=== PATIENT | male | born 1975 | race Hispanic/Latino ===

== ENCOUNTER 2016-12-06 09:37 | Emergency (ER) | payer OTHER ==
[~2016-12-06] VITALS: Ht 180.3 cm; Wt 109.0 kg
[~2016-12-06 09:37] MED LIST: IBUP800T28 PO
[2016-12-06 09:51] VITALS: BP 160/96; PULSE 72; RESP 13; O2SAT 96
--- NOTE | 2016-12-06 09:51 | ED.REPORT ---
HPI-General Illness Date of Service December 06, 2016 ED Provider: The patient is a 41 year old male with history of alcohol abuse, bipolar, depression, who presents to the emergency department complaining of shortness of breath that has worsened over the last few hours. The patient states he has experienced shortness of breath intermittently for quite some time. He has been drinking 1/5 bottle of hard alcohol for the last 6 years. His breathing is usually worse with drinking alcohol. He also notices left shoulder numbness and reports having occasional "visions" when he is drinking. At this time he feels nauseous. He denies chest pain or vomiting. The patient does admit to feeling suicidal over the last couple of months. He has a plan of hanging himself. He denies homicidal ideation. He normally take Citalopram 20 mg daily but has not taken this for the last few days. Nursing Notes Stated Complaint: HARD TO BREATHE Chief Complaint: Respiratory Distress Nursing Notes Reviewed: Yes Allergies: Coded Allergies: No Known Allergies (Unverified , 09/29/15) Scheduled PRN Ibuprofen (Ibuprofen) 800 Mg Tablet 800 MG PO TID PRN PRN For Pain General Time Seen by MD: 09:50 Chief Complaint Other (shortness of breath) Hx Obtained From: Patient, Other family... Arrived By: Walk-in Sudden in Onset?: No Onset Occurred: More than a week ago... Symptom Duration: Intermittent Severity: Current: No pain currently Severity: Maximum: No pain Recent Healthcare: No recent doctor visit, No recent hospitalization Similar Sx Previous: Yes Past Medical History Past Medical History Alcoholism Hernia Hypertension Bipolar Depression Past Surgical History None Family History Noncontributory Smoking History Never Smoker Social History Alcohol Use: >5 per day Drug Use: Denies drug use Other Social History: Good social support, , Local resident Ambulatory Status Independent Review of Systems Full Review of Systems Respiratory: Reports: Shortness of breath Cardiovascular: Denies: Chest pain GI: Reports: Nausea, Denies: Vomiting Psychiatric: Reports: Change mental status, Hallucinations, visual, Suicidal ideation, Denies: Homicidal ideation Complete sys rev & neg: except as marked. Physical Exam Vital Signs Vital Signs Date Time Temp Pulse Resp B/P Pulse Ox O2 Delivery O2 Flow Rate FiO2 12/06/16 15:02 37 87 17 138/68 98 Room Air 12/06/16 09:51 35.9 72 13 160/96 96 Room Air Initial VS: Reviewed Head / Eyes: Atraumatic, Normocephalic, PERRL ENT: Mucous membranes moist, Conjunctiva normal, No scleral icterus Respiratory: Breath sounds normal, Clear to auscultation, No respiratory distress Abdomen / GI: Soft, Non-tender, No guarding, No rebound, No distention Extremities: Vascular intact, Neuro intact, No swelling, No tenderness Skin: Warm, Dry, No cyanosis Neurologic: Nonfocal General/Constitutional: Awake Appears intoxicated Neck: Atraumatic, Supple, No JVD Cardiovascular: Heart rate NL, Regular rhythm, Heart sounds NL, No murmurs, No rubs, Cap refill not delayed, Peripheral circulation NL, Pulses = bilaterally Abdomen: Atraumatic, Soft, Non-tender, No guarding, No rebound, BS normoactive , No distention, No hernia, No palpable mass, No pulsatile mass Lower Extremity / Pelvis / MS: Neurologic intact, Vascular intact, No edema Abnormal Mood/Affect: Positive: Flat affect Abnormal Thinking / Perception: Positive: Hallucinations, visual (per patient, "visions"), Suicidal, with plan Poor eye contact Interpretation & Diagnostics Interpretation & Diagnostics: Breathalyzer: 0.282 at 0959, 0.196 at 1502, 0.129 at 1729 Lab Results Interpretation Result Diagram: 12/06/16 1009 12/06/16 1009 Test 12/06/16 10:09 12/06/16 10:58 White Blood Count 6.6th/mm3 (3.8-10.1) Red Blood Count 5.59mil/mm3 (4.40-5.80) Hemoglobin 16.6g/dL (13.8-17.2) Hematocrit 47.5% (41.0-50.0) Mean Corpuscular Volume 85.0fL (81-100) Mean Corpuscular Hemoglobin 29.7pg (27.0-35.0) Mean Corpuscular Hemoglobin Concent 34.9% (32.0-37.0) Red Cell Distribution Width 13.8% (12.3-15.4) Platelet Count 227bil/L (150-400) Neutrophils (%) (Auto) 57.5% (40-74) Lymphocytes (%) (Auto) 32.8% (14-46) Monocytes (%) (Auto) 6.6% (4-12) Eosinophils (%) (Auto) 0.8% (0-5) Basophils (%) (Auto) 2.0% (0-3) Sodium Level 147mEq/L (134-144) Potassium Level 3.6mEq/L (3.5-5.2) Chloride Level 101mEq/L (97-108) Carbon Dioxide Level 26mmol/L (18-29) Blood Urea Nitrogen 7mg/dL (6-24) Creatinine 0.91mg/dL (0.76-1.27) Estimat Glomerular Filtration Rate 97mL/min (>59) Glucose Level 126mg/dL (60-99) Calcium Level 9.4mg/dL (8.5-10.1) Total Bilirubin 0.7mg/dL (0.0-1.2) Aspartate Amino Transf (AST/SGOT) 34U/L (0-50) Alanine Aminotransferase (ALT/SGPT) 55U/L (0-44) Alkaline Phosphatase 58U/L (25-150) Troponin T 0.010ug/L (0.0-0.011) Pro-B-Type Natriuretic Peptide 5.00pg/mL (0-86) Total Protein 8.4g/dL (6.4-8.4) Albumin 4.8g/dL (3.4-5.0) Thyroid Stimulating Hormone (TSH) 1.340uIU/mL (0.450-4.500) Hold Abraham Top Tube Received (Received) Hold Urine Received (Received) ECG Interpretation ECG Interpretation: Normal sinus rhythm with a rate of 68 No acute changes Time: 10:46 Interpreted by: ED physician X-Ray Chest Interpretation Chest Xray Interpretation: IMPRESSION: No acute cardiopulmonary disease. Dictated by: Ramirez Cummins RRJohn Paul Interpreted: Johnson Jean MD on 12/06/2016 at 13:24 Interpretation / Wet Read by: Interpret - Radiologist Re-Eval/Medical Decision Med Decision/Clinical Course No significant evidence pathology for shortness of breath however the patient is suicidal. Currently awaiting more meaningful sobriety for reevaluation. Care transferred to Dr. Pinto Source of Hx: Old records, Family Time of Eval: 12:08 Re-Evaluation/Progress Note: Rechecked the patient. He is resting comfortably. Counseled Regarding: Diagnosis, Lab results Discharge & Departure Primary Impression: Alcohol abuse Additional Impression: Suicidal ideation Discharge Condition All VS Reviewed: Yes Condition: Stable Referrals: Jennifer Lang MD (PCP) Care Transferred to: Dr. Pinto Care Transferred at: 18:01 Scribe Attestation Portions of this note were transcribed by Laverne Loja. I, Dr. Messer personally performed the history, physical exam and medical decision-making; I reviewed and confirmed the accuracy of the information in the transcribed note. Signed by: Saurav Guerrero, 12/06/2016 at 1800. copies to: Jennifer Lang MD, Timothy S DO December 06, 2016 09:51 Laverne Loja December 06, 2016 09:58
[2016-12-06] MEDS ORDERED: LidocaineVisc 2%:Antacid 1:1 10 mL Syringe PO ONE (10:20)
[2016-12-06 10:22] LABS: EOSINOPHILS % (AUTO) 0.8 % (0-5); MONOCYTES % (AUTO) 6.6 % (4-12); Mean Corpuscular Hemoglobin 29.7 pg (27.0-35.0); NEUTROPHILS % (AUTO) 57.5 % (40-74); Platelet Count 227 bil/L (150-400)
[2016-12-06] MEDS ORDERED: LORazepam 2 mg Tablet PO ONE ×3 (10:25→17:25)
[2016-12-06] MEDS ORDERED: Ondansetron 8 mg ODT Tablet ONE (11:40)
[2016-12-06 11:55] LABS: TROPONIN T 0.01 ug/L (0.0-0.011)
--- NOTE | 2016-12-06 13:27 | DRSVH ---
PROCEDURE: X-RAY CHEST ONE VIEW, PORTABLE ([id number]) INDICATIONS: dyspnea TECHNIQUE: One view of the chest was acquired. COMPARISON: [facility], CR, XR CHEST 1VW (PORTABLE), 08/06/2015, 23:22. FINDINGS: Surgical changes and devices: None. Lungs and pleura: No pleural effusions or pneumothorax. Lungs are clear. Mediastinum: Mediastinal contours appear normal. Heart size is normal. Bones and chest wall: No suspicious bony lesions. Overlying soft tissues appear unremarkable. IMPRESSION: No acute cardiopulmonary disease. Dictated by: Ramirez Cummins John Paul Interpreted: Johnson Jean MD on 12/06/2016 at 13:24 Transcribed by: JUSTICE on 12/06/2016 at 13:27 Approved by: Johnson Jean M.D. on 12/06/2016 at 15:11
[2016-12-06 15:02] VITALS: BP 138/68; PULSE 87; RESP 17; O2SAT 98
[2016-12-06 20:17] VITALS: BP 137/61; PULSE 87; RESP 17; O2SAT 98
== END 2016-12-06 20:50 | disposition home or self-care (01) ==
LOC: SED 09:37
DX: F10.20 Alcohol dependence, uncomplicated (principal); R45.851 Suicidal ideations; F31.9 Bipolar disorder, unspecified; R20.2 Paresthesia of skin; I10 Essential (primary) hypertension; Y90.6 Blood alcohol level of 120-199 mg/100 ml

== ENCOUNTER 2017-01-10 17:47 | Emergency (ER) | payer OTHER | END 2017-01-10 17:50 | disposition left against medical advice (07) | LOC: SED 17:47 | DX: Z53.21 Procedure and treatment not carried out due to patient leaving prior to being seen by health care provider (principal) ==

== ENCOUNTER 2017-02-13 03:20 | Emergency (ER) | payer MEDICAID, OTHER ==
[~2017-02-13] VITALS: Ht 180.3 cm; Wt 106.8 kg
[2017-02-13 03:24] VITALS: BP 144/98; PULSE 86; RESP 18; O2SAT 95
--- NOTE | 2017-02-13 04:13 | ED.REPORT ---
HPI-Trauma Minor / Fall Date of Service Feb 13, 2017 ED Provider: oJhn Ball MD Patient is a 42-year-old male with history of alcoholism, bipolar disorder, depression presents to the emergency department after a fall earlier today. He was jumping over a 5 foot and today when he landed on his feet, and fell to his bottom. He did not lose consciousness and did not hit his head. At the time of the fall he noticed sharp 10/10 pain in his right heel. Since that time he has approximately 5/10 achy pain on the lateral aspect of his right heel. The pain radiates toward his toes. He has not been bearing weight on it. For the last month he has had bilateral heel pain that improves with walking. He has not taken any medication to improve his symptoms. Patient denies fever, chills , headache, abdominal pain, chest pain, shortness of breath. Nursing Notes Stated Complaint: FALL,NOT ABLE FEEL RT HEEL AND FINGERS RT HAND Chief Complaint: Extremity Trauma Nursing Notes Reviewed: Yes Allergies: Coded Allergies: No Known Allergies (Unverified , 09/29/15) Scheduled PRN Ibuprofen (Ibuprofen) 800 Mg Tablet 800 MG PO TID PRN PRN For Pain General Time Seen by MD: 03:50 Chief Complaint Fall Hx Obtained From: Patient Arrived By: Walk-in Onset Occurred: 9 - 12 hours ago Symptom Duration: Since onset Past Medical History Past Medical History Alcoholism Hernia Hypertension Bipolar Depression Past Surgical History None Family History No family history of osteoporosis Smoking History Never Smoker Social History Alcohol Use: >5 per day (fifth per week) Drug Use: Denies drug use Other Social History: Good social support, , Local resident Ambulatory Status Independent Review of Systems A comprehensive review of systems was conducted with the patient and found to be negative except as above in the History of Present Illness. Physical Exam Initial Vital Signs Vital Signs (First) Date Time Temp Pulse Resp B/P Pulse Ox O2 Delivery O2 Flow Rate FiO2 02/13/17 03:24 36.4 86 18 144/98 95 Room Air Initial VS: Reviewed, Vital signs normal Head / Eyes: Atraumatic, Normocephalic, PERRL ENT: Mucous membranes moist, Conjunctiva normal, No scleral icterus Respiratory: Breath sounds normal, Clear to auscultation, No respiratory distress Cardiovascular: Regular rate & rhythm, Heart sounds normal, Intact distal pulses Abdomen / GI: Soft, Non-tender, No guarding, No rebound, No distention Lymphatic: No lymphadenopathy Skin: Warm, Dry, No cyanosis Neurologic: Alert, Oriented, Nonfocal Psychiatric: Behavior normal, Normal thought content General/Constitutional: Awake, Alert Erythema and warmth over the right lateral heel. Tenderness to palpation in the same area. Strength in dorsi and plantar flexion of ankle normal. Re-Eval/Medical Decision Med Decision/Clinical Course Patient is a 42-year-old male who jumped over a 5 foot fence today and injured his right lateral heel. X-rays are negative for occult fracture. He has tenderness on exam. With some associated redness and mild swelling. Recommendations for patient include ice, elevation, ibuprofen for pain. Patient departed prior to results of x-ray being given. If he returns with difficulty ambulating I would recommend crutches and postop shoe if needed due to swelling. Discharge & Departure Impression: Primary Impression: Contusion of foot Encounter type: initial encounter Laterality: right Qualified Code: S90.31XA - Contusion of right foot, initial encounter Disposition: Home Discharge Condition All VS Reviewed: Yes Condition: Stable Patient Instructions: Crutch Instructions (ED) Additional Instructions: Thank you for entrusting us with your care today. You have no fracture of the year foot visible on x-ray. You may take ibuprofen, ice, and elevate your foot to help with pain control and prevent swelling. You may use crutches to help with ambulation while it is still painful to walk on. Please follow-up with your primary care provider within the next week, or earlier if symptoms do not begin to gradually improve. Referrals: Jennifer Lang MD (PCP) Attending Statement I supervised evaluation and management of the resident physician and agree with her documentation as above. Patient left after his x-rays without completion of his evaluation. copies to: Jennifer Lang MD, Erika R DO Feb 13, 2017 04:13 John Ball MD Feb 13, 2017 07:25
--- NOTE | 2017-02-13 09:05 | DRSVH ---
PROCEDURE: X-RAY RIGHT FOOT COMPLETE, MINIMUM THREE VIEWS ([id number]) INDICATIONS: Fall from 5 ft TECHNIQUE: 3 views of the foot were acquired. COMPARISON: None. FINDINGS: Bones: No fractures or dislocations. No suspicious bony lesions. Hypertrophic changes involving th e medial aspect of the first metatarsal head and medial bunion is present. Soft tissues: No tibiotalar joint effusion. Achilles tendon appears normal. IMPRESSION: No fracture seen. If there is continued pain, followup exam or additional imaging such as MRI or CT could be performed for further assessment. Dictated by: Ramirez Cummins [facility] Interpreted: Oswaldo Pitts MD on 02/13/2017 at 9:04 Transcribed by: MIGUEL on 02/13/2017 at 9:05 Approved by: Oswaldo Pitts M.D. on 02/13/2017 at 11:43
--- NOTE | 2017-02-13 10:51 | DRSVH ---
PROCEDURE: X-RAY RIGHT CALCANEUS, MINIMUM TWO VIEWS ([id number]) INDICATIONS: Fall from 8 ft TECHNIQUE: Two views of the calcaneus were acquired. COMPARISON: None. FINDINGS: Bones: No fractures or dislocations. No suspicious bony lesions. Soft tissues: No suspicious calcifications. Achilles tendon appears normal. IMPRESSION: No fracture seen. If there is continued pain, followup exam or additional imaging such as MRI or CT could be performed for further assessment. Dictated by: Ramirez Cummins [facility] Interpreted: Oswaldo Pitts MD on 02/13/2017 at 9:03 Approved by: Oswaldo Pitts M.D. on 02/13/2017 at 10:50
== END 2017-02-13 05:59 | disposition home or self-care (01) ==
LOC: SED 03:20
DX: S90.31XA Contusion of right foot, initial encounter (principal); W17.89XA Other fall from one level to another, initial encounter; Y93.9 Activity, unspecified; Y92.9 Unspecified place or not applicable; Y99.9 Unspecified external cause status; I10 Essential (primary) hypertension

== ENCOUNTER 2017-02-19 12:28 | Inpatient (IN) | payer MEDICAID, OTHER ==
[~2017-02-19] VITALS: Ht 157.5 cm; Wt 103.7 kg
[2017-02-19] VITALS (10 sets, daily range): BP systolic 151–189; BP diastolic 98–125; PULSE 91–116; RESP 16–20; O2SAT 92–97
--- NOTE | 2017-02-19 12:40 | ED.REPORT ---
HPI-Overdose/Alcohol Toxicity Date of Service Feb 19, 2017 ED Provider: Satish Daly MD Patient is a 42 year old male with a history of hypertension, bipolar disorder and alcoholism who presents to the ED due to alcohol withdrawal. Associated symptoms include shaking, diaphoresis, nausea, vomiting and subjective fever. He denies hematemesis or black/tarry stool. The patient reports that he went to have his first assessment for rehab and they told him he needed to be evaluated at the ED. Patient states that his last drink was last night. He has a history of black outs due to alcohol use. Nursing Notes Stated Complaint: ALCOHOL WITHDRAWAL Chief Complaint: Substance Abuse Nursing Notes Reviewed: Yes Allergies: Coded Allergies: No Known Allergies (Unverified , 02/19/17) Scheduled Citalopram (Citalopram) 20 Mg Tablet 20 MG PO DAILY General Time Seen by Provider: 12:52 Chief Complaint Other (alcohol withdraw) Hx Obtained From: Patient Arrived By: Walk-in Onset Occurred: 1 day ago Symptom Duration: Since onset Recent Healthcare: Recent doctor visit Similar Sx Previous: Yes Past Medical History Past Medical History Alcoholism Hernia Bipolar Depression Reports: Hypertension Past Surgical History None Family History No family history of osteoporosis Smoking History Never Smoker Social History Alcohol Use: >5 per day Drug Use: Denies drug use Other Social History: Good social support, , Local resident Ambulatory Status Independent Review of Systems Constitutional: Reports: Fever, Denies: Chills Respiratory: Denies: Non-productive cough, Shortness of breath GI: Reports: Nausea, Vomiting, Denies: Bloody/tarry stool, Hematemesis Skin: Reports Diaphoresis, Denies Itching, Denies Rash Neurologic: Reports: Shaking, Denies: Weakness Complete sys rev & neg: except as marked. Physical Exam Initial Vital Signs Vital Signs (First) Date Time Temp Pulse Resp B/P Pulse Ox O2 Delivery O2 Flow Rate FiO2 02/19/17 12:34 37.2 116 18 185/125 95 Room Air Initial VS: Reviewed General/Constitutional: Awake, Alert tremulous Respiratory / Chest: Atraumatic, Breath sounds NL, Breath sounds = bilat, No respiratory distress Cardiovascular: Heart rate NL, Regular rhythm, Heart sounds NL Abdomen: Atraumatic, Soft, Non-tender Neurologic: Oriented X3, Speech NL Psychiatric: Affect NL, Mood NL Head / Eyes: Atraumatic, Normocephalic, PERRL, EOMI Neck: Atraumatic, Supple Skin: Atraumatic, Color NL, No rash diaphoretic Interpretation & Diagnostics Lab Results Interpretation Result Diagram: 02/19/17 1406 Test 02/19/17 14:06 02/19/17 14:07 White Blood Count 4.6th/mm3 (3.8-10.1) Red Blood Count 5.23mil/mm3 (4.40-5.80) Hemoglobin 15.8g/dL (13.8-17.2) Hematocrit 45.1% (41.0-50.0) Mean Corpuscular Volume 86.2fL (81-100) Mean Corpuscular Hemoglobin 30.2pg (27.0-35.0) Mean Corpuscular Hemoglobin Concent 35.0% (32.0-37.0) Red Cell Distribution Width 15.3% (12.3-15.4) Platelet Count 163bil/L (150-400) Neutrophils (%) (Auto) 74.2% (40-74) Lymphocytes (%) (Auto) 14.0% (14-46) Monocytes (%) (Auto) 9.6% (4-12) Eosinophils (%) (Auto) 0% (0-5) Basophils (%) (Auto) 2.2% (0-3) Hold Abraham Top Tube Received (Received) ECG Interpretation ECG Interpretation: sinus tachycardia, rate 109 Time: 13:53 Interpreted by: ED physician Re-Eval/Medical Decision Re-Evaluation/Progress : Time of Eval: 13:38 Re-Evaluation/Progress Note: Discussed plan to admit. Patient understands and agrees to plan. All questions were addressed. Consultation : Referral / Consult Name: Martin Horvath MD Consulted With: Hospitalist Call Returned at: 13:57 Tape Maker: Agrees with eval, Agrees with plan, Accepts admit Counseled Regarding: Diagnosis, Lab results, Need for admission Discharge & Departure Impression: Primary Impression: Alcohol withdrawal Complication of substance-induced condition: uncomplicated Qualified Code: F10.230 - Alcohol dependence with withdrawal, uncomplicated )( Condition at Discharge: No danger to self, No danger to others Disposition: ADMITTED TO HOSPITAL Discharge Condition All VS Reviewed: Yes Condition: Stable Referrals: Jennifer Lang MD (PCP) Scribe Attestation Portions of this note were transcribed by Shanika Garduno. I, Dr. Daly personally performed the history, physical exam and medical decision-making; I reviewed and confirmed the accuracy of the information in the transcribed note. Signed by: Saurav Aguayo, 02/19/17 copies to: Jennifer Lang MD, Kirk H MD Feb 19, 2017 12:40 Shania Garduno Feb 19, 2017 12:54
[2017-02-19] MEDS ORDERED: LORazepam 2 mg Tablet PO ONE (12:55)
[2017-02-19] MEDS ORDERED: Multivitamin w/Vit K Inj 10 ML, Thiamine Inj 100 MG, Folic Acid Inj 1 MG, Magnesium Sul... IV ONE ×5 (13:42)
--- NOTE | 2017-02-19 13:49 | NUR ---
ED HEATING ELEMENT WINDER Note Carlos Ybarra Jr. is a 42 year old male who presents to the ED with ETOH withdrawal. BAL is 0. Pt was at [facility] for his assessment to get placed into inpt treatment. [facility] encouraged pt to come to the ED due to severity of withdrawal symptoms. HEATING ELEMENT WINDER order placed to see pt. Per MD, pt is being admitted. HEATING ELEMENT WINDER on the hospital floor to see pt if indicated when pt is appropriate. JACQUE Brink
[2017-02-19] MEDS ORDERED: 0.9% Sodium Chloride 1,000 ML IV ONE (13:55)
[2017-02-19] MEDS ORDERED: Alum-Mag Hydrox-Simeth 30 mL Suspension PO PRN (14:00)
[2017-02-19] MEDS ORDERED: Polyethylene Glycol (PEG) 17 Gm Powder PO PRN (14:00)
[2017-02-19] MEDS ORDERED: Thiamine Inj 100 MG, Folic Acid Inj 1 MG, Magnesium Sulfate 50% Inj 2 GM, Multivitamins... IV ONE ×5 (14:00)
[2017-02-19] MEDS ORDERED: Ondansetron 2 mg/mL 2 mL Inj IVPUSH PRN (14:00)
[2017-02-19 14:09] LABS: BASOPHILS % (AUTO) 2.2 % (0-3); EOSINOPHILS % (AUTO) 0 % (0-5); MONOCYTES % (AUTO) 9.6 % (4-12); Mean Corpuscular Hemoglobin 30.2 pg (27.0-35.0); Mean Corpuscular Volume 86.2 fL (81-100); NEUTROPHILS % (AUTO) 74.2 % (40-74); Platelet Count 163 bil/L (150-400)
[2017-02-19] MEDS ORDERED: CITA20TA11 PO (14:36)
[2017-02-19 14:39] LABS: Magnesium 1.4 mg/dL (1.6-2.6)
[2017-02-19] MEDS ORDERED: NiCARdipine Inj 25 MG in Dextrose 5% 240 ML IV SCH (15:45)
[2017-02-19] MEDS ORDERED: Thiamine Inj 100 MG in Dextrose 5% 50 ML IV ONE (16:00)
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
[2017-02-19] MEDS: NiCARdipine Inj 25 MG in Dextrose 5% 240 ML IV SCH ×2 (17:02→20:26)
[2017-02-19] MEDS ORDERED: DEXTROSE 5% IV PRN (17:05)
[2017-02-19] MEDS ORDERED: POTASSIUM CHLORIDE IV PRN (17:05)
[2017-02-19] MEDS: Heparin 5,000 Unit/mL Inj SUBQ SCH (17:11)
[2017-02-19] MEDS: 0.9% Sodium Chloride 1,000 ML IV SCH ×2 (17:12→23:11)
--- NOTE | 2017-02-19 17:21 | NUR ---
Evaluation completed. Please go to "Notes" then click on "Assessments and Notes" (bottom left corner of screen). Then select appropriate discipline tab on top of screen.
--- NOTE | 2017-02-19 18:25 | NUR ---
HTN/CIWA/DMII concerns No reports of CP/pressure/discomfort. BP when arrival to floor 189/125, MD aware. Clonidine patch on left shoulder, 5mg PO Amlodipine and 1.25mg Vasotec lowered blood pressure to 173/101. Will receive lisinopril tonight at 2030, per MD -- ok to non admin nicardepine drip. Tele SR/tach 90s-110s with no ectopy. Distal pulses strong and palpable. No reports of abdominal pain/diarrhea/constipation. Per ED report, very nauseated (no emesis) in ED but currently has mild nausea post ativan admin. Has not voided since arrival to unit, per ED voiding without complication. Per patient, states he feels he should get tested for diabetes, stating "a lot of people in my family have it, and I read online that sweet and fruity smelling urine is a sign". Alert and oriented x3, HICKMAN, reports full sensation. Generalized weakness r/t malaise and frequent IV ativan admins. Speech is somewhat delayed in response to questions. Per ED report, CIWA 29 in ED, after 2 doses of ativan decreased to 9. Patient has been at a 9 since arrival to unit.
[2017-02-19] MEDS: Famotidine Inj 20 MG in IV Premix 1 EACH IV SCH (20:29)
[2017-02-20] VITALS (8 sets, daily range): BP systolic 138–162; BP diastolic 79–96; PULSE 76–98; RESP 17–20; O2SAT 94–98
[2017-02-20] MEDS: Heparin 5,000 Unit/mL Inj SUBQ SCH ×4 (00:34→23:22)
[2017-02-20] MEDS: NiCARdipine Inj 25 MG in Dextrose 5% 240 ML IV SCH ×2 (00:35→08:02)
[2017-02-20 02:49] LABS: Mean Corpuscular Hemoglobin 30.6 pg (27.0-35.0); Mean Corpuscular Volume 88.1 fL (81-100)
[2017-02-20] MEDS: 0.9% Sodium Chloride 1,000 ML IV SCH (03:58)
[2017-02-20] MEDS ORDERED: Thiamine Inj 100 MG in Dextrose 5% 50 ML IV ONE (08:30)
[2017-02-20] MEDS: D5 0.45% NaCl + KCl 20 mEq/L 1,000 ML IV SCH ×2 (08:43→20:42)
[2017-02-20] MEDS: Famotidine Inj 20 MG in IV Premix 1 EACH IV SCH ×2 (08:44→19:31)
[2017-02-20] MEDS: Multivit-Miner-Folic Acid-Iron Tablet PO SCH (08:44)
--- NOTE | 2017-02-20 12:56 | NUR ---
Social Work: Multidisciplinary Rounds/Initial Assessment D: Per EMR review, pt is a 42 year old male admitted for ETOH W/d. Pt is [employer] insurance with no supplement; pt has no LTC or VA benefits. PCP is Jennifer Lang MD. NOK is Ronel Ybarra, spouse, . Advanced directives not completed- information provided. Readmit score not entered at this time. Pt discussed in multidisciplinary rounds; capacity for self-care and discharge needs discussed. No concerns for self-care. Pt is waiting to get into inpatient treatment. Provider has placed a CD order for the patient. CUT OFF OPERATOR SCORER acknowledges order- see detached assessment. CUT OFF OPERATOR SCORER met with the patient at bedside to complete discharge planning. Sw role explained, discharge planning checklist and contact information provided. Pt lives in [place] with his . pt is I at baseline, uses no DME and is I with all ADLs. Pt uses no DME at baseline. Pt confirms that he is awaiting a bed for inpatient treatment and is working with [facility]. He and spouse understand that it is highly unlikely that a bed will be found before his discharge and that he will likely discharge home to wait for a treatment bed as an outpatient. He and his confirm that they understand this. They are in daily contact with the pt's CCS pillowcase maker, Jazmine Wade ([phone]). A: Pt who is I at baseline. P: Anticipate pt to either discharge home via POV or directly to inpatient CD rehab if a bed can be located. CUT OFF OPERATOR SCORER to continue to follow to assess for unmet discharge needs. JACQUE Morales Addendum: 02/20/17 at 1303 by BOB CAM Amended: Links added.
--- NOTE | 2017-02-20 12:59 | NUR ---
Case Management: Clarification of patient status: inpatient from admit per MD order. Rowdy Ackerman RN
--- NOTE | 2017-02-20 13:04 | NUR ---
Social Work: Chemical Dependency Evaluation Current Situation: Pt is a 42 year old male admitted for ETOH W/d. ONLINE TUTOR met with the patient and his at bedside to complete assessment as ordered by attending MD. The patient has been consuming approximately 1/5 of Vodka daily for the last several weeks. Yesterday he was at [facility] for a community CD assessment when his skilled nursing case manager instructed him to come to the ED because the pt was experiencing tremors and signs of serious ETOH withdrawal. The assessment was completed and the CM is seeking an inpatient bed for the patient. CM is Anna Wade ([phone]). Pt declined to have this ONLINE TUTOR contact the outpatient counselor to notify of this admission. will do this and get an update from him about the pt's bed placement. History of ETOH Use: Pt states he has been drinking for many years. 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 Pt states that he has never had an ETOH related seizures but has experienced visual hallucinations, flu-like symptoms and insomnia due to ETOH use. Pt has completed a 30 day inpatient treatment in January 2015. Mental Health History: Pt denies any history of mental illness, suicidal ideation/plan/intent, current or past. Family History: Pt states that he has significant family history of substance use and alcohol use. Pt's sister struggles with polysubstance abuse. Legal Issues: Pt denies any legal issues related to his ETOH use. Perceptions of Use/Motivation for Change: Pt understands the impact his drinking has had on his life. 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 The patient has good motivation to change and has good insight into his drinking patterns. Pt is in the preparation phases of the the stages of change model. Disposition: The patient and his agree that they will continue to keep in close contact with the patient's outpatient CDP, Anna Wade. They understand that once the pt is medically stable for discharge he will need to discharge whether an inpatient bed has been located or not. The patient states he has no other discharge needs and just wants to get to treatment. The patient's will transport the patient home and/or to treatment. ONLINE TUTOR updated attending MD of this. JACQUE Morales
--- NOTE | 2017-02-20 16:21 | PCM.PNMED ---
Subjective Date of Service Feb 20, 2017 Subjective 42-year-old male who seeking help for alcohol withdrawal. History ED his CIWA scores 29 and decreased to 10 with 2 doses of Ativan. Patient has been below 10 since that time. Today he is doing pretty well. Has a good appetite. No diarrhea, obvious hallucinations, only mild tremor, and no nausea/vomiting. Exam Vital Signs Vital Sign - Last Date Time Temp Pulse Resp B/P Pulse Ox O2 Delivery O2 Flow Rate FiO2 02/20/17 10:58 76 02/20/17 10:52 36.6 20 149/88 98 Room Air Intake and Output 02/19/17 02/19/17 02/20/17 Cumulative From/Thru 15:00 23:00 07:00 02/19/17 12:34 - 02/20/17 06:12 Intake Total 1000 ml 1200 ml 1784 ml 3984 ml Output Total 450 ml 450 ml Balance 1000 ml 1200 ml 1334 ml 3534 ml Intake Oral 200 ml 537 ml 737 ml IV Total 1000 ml 1000 ml 1247 ml 3247 ml Output Urine Total 450 ml 450 ml # Voids 1 0 2 3 # Bowel Movements 1 1 Exam General: Pleasant appearing male in no acute distress HEENT: PERRLA, EOMI, nonicteric, membranes moist Lymph: No lymphadenopathy Cardio: Tachycardia with regular rhythm no murmurs rubs or gallops Respiratory: CTA bilaterally, no wheezes, no crackles Abdomen: Soft, positive bowel sounds, nontender, nondistended Extremities: No edema, sensation intact; tremor and mild asterixis Psych: Appropriate mood and affect IVs and Medications Medications Reviewed: Medications were reviewed in detail Lab and Diagnostics Result Diagram: 02/20/17 0230 02/20/17 0230 Assessment & Plan 42-year-old man with alcohol abuse disorder and hypertension presents in clinical alcohol withdrawal. Alcohol dependence with withdrawal, acute, present on admission. Last drink evening of 02/18/17. Current symptoms include tremor, nausea, hypertension and tachycardia. Received 2 L normal saline. - CIWA protocol with lorazepam - Clonidine patch - Banana bag - Monitor for seizure risk - Magnesium, thiamine 200mg daily, folate supplement - Social work consult for rehabilitation program referral when patient is stable Hypertension, acute on chronic. Better control today wqith clonidine patch - Continue Clonidine patch - IV enalaprilat for acute correction to systolic blood pressure less than 180 - Amlodipine and lisinopril by mouth - Nicardipine drip if needed Hypokalemia, acute, present on admission. - Receiving magnesium supplement - Replacement order set for potassium - Daily BMP Elevated transaminases and bilirubin, acute. Most likely acute alcoholic injury. Additional workup for acute hepatitis is low yield, will defer this unless abnormalities are persistent. - Repeat CMP in 48 hours # Nausea and vomiting, acute. These appear to be mild at time of admission - When necessary antiemetics - Monitor closely for signs of GI bleeding. Resolving, stable and/or chronic problems: # Alcohol dependence disorder, chronic. Pain Evaluation: Adequate Pain Control GI Prophylaxis: Not indicated VTE Prophylaxis: Sub-Q Heparin (Unfractionated) Resuscitation Status: CPR: Attempt Resuscitation Time spent 30 minutes Attending Statement I interviewed and examined the patient on rounds today. I agree with the assessment and plan as stated above. Сергей Carr DO Feb 20, 2017 16:21 Martin Horvath MD Feb 20, 2017 18:46
--- NOTE | 2017-02-20 17:44 | NUR ---
CIWA pt has had a CIWA of 10-14 all day. His main complaints are anxiety, tremor and some visual hallucinations at times. He doesn't complain of a ACOSTA but does say he feels pressure and dizziness. Ativan given as ordered.
[2017-02-21] VITALS (7 sets, daily range): BP systolic 136–175; BP diastolic 74–102; PULSE 69–88; RESP 17–20; O2SAT 94–95
--- NOTE | 2017-02-21 03:12 | NUR ---
Transfer, Pt transferred to room 3006, report given to ABHILASH Gonsales prior to transfer. Vitals stable, Pt on RA, IVF infusing as ordered. Care ongoing.
[2017-02-21] MEDS: D5 0.45% NaCl + KCl 20 mEq/L 1,000 ML IV SCH ×3 (03:26→21:06)
--- NOTE | 2017-02-21 03:39 | NUR ---
Transfer [facility]27 from 2008 A&O pt arrived to unit via wc with IVF infusing. Pt c/o ACOSTA, 11/15. No Rx on hand, message sent to MD and verbal order recd. Pt on tele monitoring, SR 67 per tech. Pt denies having questions. VSS. Bed in low position, upper rails up, call light in reach. Will continue to monitor.
[2017-02-21 06:47] LABS: BASOPHILS % (AUTO) 1.2 % (0-3); EOSINOPHILS % (AUTO) 1.6 % (0-5); MONOCYTES % (AUTO) 7.5 % (4-12); Mean Corpuscular Hemoglobin 30.4 pg (27.0-35.0); Mean Corpuscular Volume 87.5 fL (81-100); NEUTROPHILS % (AUTO) 57.7 % (40-74); Platelet Count 129 bil/L (150-400)
[2017-02-21 07:13] LABS: Phosphorus 2.9 mg/dL (2.5-4.9)
[2017-02-21] MEDS: Famotidine Inj 20 MG in IV Premix 1 EACH IV SCH ×2 (08:50→21:06)
[2017-02-21] MEDS: Multivit-Miner-Folic Acid-Iron Tablet PO SCH (08:50)
[2017-02-21] MEDS: Heparin 5,000 Unit/mL Inj SUBQ SCH ×2 (09:05→17:07)
--- NOTE | 2017-02-21 14:43 | PCM.PNMED ---
Subjective Date of Service Feb 21, 2017 Subjective Resting comfortable in bed. CIWA 6 earlier today. Still a bit shaky, being cooperative with nursing and staff. No new complaints. Exam Vital Signs Vital Sign - Last Date Time Temp Pulse Resp B/P Pulse Ox O2 Delivery O2 Flow Rate FiO2 02/21/17 12:44 36.8 76 17 136/74 94 Room Air Intake and Output 02/20/17 02/20/17 02/21/17 Cumulative From/Thru 15:00 23:00 07:00 02/19/17 12:34 - 02/21/17 03:50 Intake Total 1405 ml 1669 ml 7058 ml Output Total 400 ml 850 ml Balance 1405 ml 1269 ml 6208 ml Intake Oral 670 ml 400 ml 1807 ml IV Total 735 ml 1269 ml 5251 ml Output Urine Total 400 ml 850 ml # Voids 4 7 # Bowel Movements 1 Exam Skin; warm and dry HENT, adequate hydration, no lesions EYES; lisa, eom intact CV; regular, no murmur Resp; clear anteriorly GI; soft non acute, no pain of discomfort to palpation Neuro; bit tremulous, cn 2-12 intact, no focal neuro deficits Lab and Diagnostics Result Diagram: 02/21/1762402/21/17 0625 Assessment & Plan 42-year-old man with alcohol abuse disorder and hypertension presents in clinical alcohol withdrawal. Alcohol dependence with withdrawal, acute, present on admission, improving - Last drink evening of 02/18/17. Current symptoms include tremor, nausea, hypertension and tachycardia. - CIWA protocol with IV lorazepam, CIWA 6 earlier today - Clonidine patch - Banana bag - Monitor for seizure risk - Magnesium, thiamine 200mg daily, folate supplement - Social work consult for rehabilitation program referral when patient is stable Hypertension, acute on chronic, improving - Better control today with clonidine patch - Continue Clonidine patch - IV enalaprilat for acute correction to systolic blood pressure less than 180 - Amlodipine and lisinopril by mouth - Nicardipine drip if needed Hypokalemia, acute, present on admission, resolved - Receiving magnesium supplement - Replacement order set for potassium - Daily BMP Elevated transaminases and bilirubin, acute. -Most likely acute on chronic alcoholic injury. # Nausea and vomiting, acute, resolved -These appear to be mild at time of admission - When necessary antiemetics - Monitor closely for signs of GI bleeding. Resolving, stable and/or chronic problems: # Alcohol dependence disorder, chronic. GI Prophylaxis: Not indicated VTE Prophylaxis: Sub-Q Heparin (Unfractionated) VTE Mechanical Devices: Venous Foot Pump Resuscitation Status: CPR: Attempt Resuscitation Taqueria Williamson MD Feb 21, 2017 14:43
--- NOTE | 2017-02-21 19:31 | NUR ---
CIWA Scores this shift: 6,6,10. Patient cooperative, pleasant.
[2017-02-22] VITALS (8 sets, daily range): BP systolic 135–151; BP diastolic 77–97; PULSE 61–77; RESP 18–19; O2SAT 95–97
[2017-02-22] MEDS: Heparin 5,000 Unit/mL Inj SUBQ SCH ×3 (00:42→17:39)
[2017-02-22 06:36] LABS: Mean Corpuscular Hemoglobin 30.3 pg (27.0-35.0); Mean Corpuscular Volume 87.7 fL (81-100)
[2017-02-22] MEDS: D5 0.45% NaCl + KCl 20 mEq/L 1,000 ML IV SCH ×2 (09:00→20:44)
[2017-02-22] MEDS: Multivit-Miner-Folic Acid-Iron Tablet PO SCH (09:05)
[2017-02-22] MEDS: Famotidine Inj 20 MG in IV Premix 1 EACH IV SCH ×2 (09:08→20:44)
--- NOTE | 2017-02-22 18:28 | PCM.PNMED ---
Subjective Date of Service Feb 22, 2017 Subjective Patient was seen and examined at bedside today. Patient denies any chest pain, shortness of breath, nausea, vomiting, diarrhea. Patient states that he is doing well and feels that his tremors are now better under control and has decreased withdrawn. Overnight events: None Exam Vital Signs Vital Sign - Last Date Time Temp Pulse Resp B/P Pulse Ox O2 Delivery O2 Flow Rate FiO2 02/22/17 16:31 36.8 67 18 147/97 95 Room Air Intake and Output 02/21/17 02/21/17 02/22/17 Cumulative From/Thru 15:00 23:00 07:00 02/19/17 12:34 - 02/22/17 06:32 Intake Total 636 ml 3864 ml 80913 ml Output Total 1580 ml 1750 ml 4180 ml Balance -944 ml 2114 ml 7378 ml Intake Oral 636 ml 1419 ml 3862 ml IV Total 2445 ml 7696 ml Output Urine Total 1580 ml 1750 ml 4180 ml # Voids 1 8 # Bowel Movements 1 Exam Physical Exam: GEN: Patient was awake, alert, responding appropriately to questions HEENT: Pupils equal round and reactive to light, extraocular eye muscles intact , Neck soft supple, trachea midline, nomocephalic/atraumatic CV: +S1/S2, regular rate and rhythm, no murmurs auscultated Respiratory: CTAB, no wheezes, rales, rhonchi GI: +bowel sounds x4, soft, compressible, nontender to palpation EXT: no clubbing, cyanosis, edema Neuro: Cranial nerves II-XII grossly intact Psych: mood and affect were appropriate IVs and Medications Medications Reviewed: Medications were reviewed in detail Lab and Diagnostics Result Diagram: 02/22/1761402/22/17614 Assessment & Plan 42-year-old man with alcohol abuse disorder and hypertension presents in clinical alcohol withdrawal. Alcohol dependence with withdrawal, acute, present on admission, improving - Last drink evening of 02/18/17. Current symptoms include tremor, nausea, hypertension and tachycardia. - CIWA protocol with IV lorazepam, CIWA 2 earlier today - Clonidine patch discontinue as patient is improved - Banana bag - Monitor for seizure risk - Magnesium, thiamine 200mg daily, folate supplement - Social work consult for rehabilitation program referral when patient is stable Hypertension, acute on chronic, improving - Blood pressure improving this morning 146/88 later in the afternoon 135/77 - Continue Clonidine patch discontinue and continue to monitor - IV enalaprilat for acute correction to systolic blood pressure less than 180 - 5 mg daily Amlodipine - Increase lisinopril to 10 mg twice a day by mouth - Nicardipine drip if needed Hypokalemia, acute, present on admission, resolved - Receiving magnesium supplement - Replacement order set for potassium - Daily BMP Elevated transaminases and bilirubin, acute. -Most likely acute on chronic alcoholic injury trending down Nausea and vomiting, acute, resolved -These appear to be mild at time of admission - When necessary antiemetics - Monitor closely for signs of GI bleeding. Resolving, stable and/or chronic problems: Alcohol dependence disorder, chronic. Disposition: Patient seems to be improving and his CIWA scores are better under control. The patient's blood pressure is also better controlled. We will discontinue the patient's clonidine patch in hopes that the patient will be stable for discharge home tomorrow. We will continue to titrate blood pressure medications as necessary. The patient is scheduled to follow up for chemical dependence with the [facility] services. GI Prophylaxis: Not indicated VTE Prophylaxis: Sub-Q Heparin (Unfractionated) VTE Mechanical Devices: Venous Foot Pump Resuscitation Status: CPR: Attempt Resuscitation Lena Govea DO Feb 22, 2017 18:28
--- NOTE | 2017-02-22 18:30 | NUR ---
CIWA Scores consistent throughout shift at "2". Patient appropriate and cooperative.
[2017-02-23] MEDS: Heparin 5,000 Unit/mL Inj SUBQ SCH ×2 (00:58→08:46)
[2017-02-23 01:00] VITALS: BP 161/101; PULSE 67; RESP 18; O2SAT 97
[2017-02-23 05:09] VITALS: PULSE 62
--- NOTE | 2017-02-23 05:09 | NUR ---
uneventful night CIWA was 1. pt reports feeling much better. denies pain or discomfort. independent in the room; slept most of then night.
[2017-02-23 05:40] VITALS: BP 145/99; PULSE 69; RESP 18; O2SAT 96
[2017-02-23] MEDS: Multivit-Miner-Folic Acid-Iron Tablet PO SCH (08:45)
[2017-02-23] MEDS: Famotidine Inj 20 MG in IV Premix 1 EACH IV SCH (08:45)
[2017-02-23 08:50] VITALS: BP 151/96; PULSE 67; RESP 16; O2SAT 97
[2017-02-23] MEDS ORDERED: PREN1TAB25 PO (11:04)
[2017-02-23] MEDS ORDERED: AMLO5TAB2 PO (11:04)
[2017-02-23] MEDS ORDERED: LISI-567 PO (11:04)
[2017-02-23] MEDS ORDERED: Thiamine PO (11:04)
--- NOTE | 2017-02-23 11:08 | PCM.DIMED ---
Discharge Instructions Date of Service Feb 23, 2017 Dates of Hospitalization Feb 19, 2017 at 15:02 Discharge Diagnosis Discharge Diagnosis Alcohol dependence disorder with withdrawal Hypertension Hypokalemia Elevated transaminases and bilirubin secondary to chronic alcohol use Medication Instructions Additional med instructions You are being asked to take a vitamin because it has a lot of the nutrients that are needed for people in alcohol withdrawal and chronic alcohol use. Please continue to take this medication daily as it contains the vitamins that you need. You have been diagnosed with high blood pressure and you have been started on 2 new medications amlodipine and lisinopril. Please take them daily. Diet Discharge Diet: No restrictions Activity Discharge Activity: No restrictions Call your provider Call your provider for: Fever or Chills, Shortness of breath, Bleeding, Excessive diarrhea, Weakness (unilateral) Patient Instructions Patient Instructions Please follow-up with the Services as they will hope you with chemical dependency programs in order to help you to maintain sobriety. Follow-up Provider: Jennifer Lang MD Follow-up with PCP in: 2 weeks (if an appointment has not been made please call to schedule an appointment) Additional Information Please call [facility] to follow-up with the chemical dependency programs. Lena Govea DO Feb 23, 2017 11:08
--- NOTE | 2017-02-23 11:09 | PCM.DC.MED ---
Discharge Summary Date of Service Feb 23, 2017 Dates of Hospitalization Date of Hospital Admission Feb 19, 2017 at 15:02 Date of Discharge: Feb 23, 2017 Providers: Admitting Physician: Martin Horvath MD Primary Care Physician: Jennifer Lang MD Attending Physician: Steven Govea DO Diagnosis at Time of Discharge Diagnosis at Time of Discharge Alcohol dependence disorder with withdrawal Hypertension Hypokalemia Elevated transaminases and bilirubin secondary to chronic alcohol use Consultations Social work for chemical dependency programs Brief History Patient is a 42-year-old gentleman who presents to the emergency room seeking an alcohol rehabilitation program. The patient at the time of review was positive for alcohol withdrawal symptoms as he had a headache, shakiness, mild nausea, but no overt vomiting or diarrhea. The patient states that he has never had seizures before secondary to alcohol withdrawal. The patient currently drinks 750 mils of vodka per day and this has increased over the past year. The patient was admitted for alcohol withdrawal. The patient was immediately placed on CIWA protocol and progressed daily with these increasing CIWA scores. The patient states that he is ready for treatment and will currently follow up with the [facility] services who will help him with chemical dependency. The patient was discharged home on a vitamin, thiamine daily, and new hypertensive medication. During the patient's stay he developed hypertensive emergency and was prescribed a clonidine patch and the patient seemed to respond well to this. The patch was discontinued on 02/22/2017 and the patient's blood pressure still remained controlled. The patient is being discharged home on 5 mg of amlodipine and 40 mg of lisinopril. The patient was encouraged to maintain sobriety and instructed to follow-up with his PCP within the next week The patient is being discharged home in stable condition. Hospital Course 42-year-old man with alcohol abuse disorder and hypertension presents in clinical alcohol withdrawal. Alcohol dependence with withdrawal, acute, present on admission, improving - Last drink evening of 02/18/17. Current symptoms include tremor, nausea, hypertension and tachycardia. - CIWA protocol with IV lorazepam, CIWA 0 - Clonidine patch discontinue as patient is improved 02/22/17 - Banana bag - Monitor for seizure risk - Magnesium, thiamine 200mg daily, folate supplement - Social work consult for rehabilitation program referral when patient is stable Hypertension, acute on chronic, improving - Blood pressure improving 140's/90's - Clonidine patch discontinued 02/21/17 - IV enalapril for acute correction to systolic blood pressure less than 180 - 5 mg daily Amlodipine - Increase lisinopril to 40mg a day by mouth - Nicardipine drip if needed Hypokalemia, acute, present on admission, resolved - Receiving magnesium supplement - Replacement order set for potassium - Daily BMP Elevated transaminases and bilirubin, acute. -Most likely acute on chronic alcoholic injury trending down Nausea and vomiting, acute, resolved -These appear to be mild at time of admission - When necessary antiemetics - Monitor closely for signs of GI bleeding. Alcohol dependence disorder, chronic. Disposition: The patient is scheduled to follow up for chemical dependence with the [facility] services. Exam Vital Signs (Last) Date Time Temp Pulse Resp B/P Pulse Ox O2 Delivery O2 Flow Rate FiO2 02/23/17 08:50 36.2 67 16 151/96 97 Room Air Exam Physical Exam: GEN: Patient was awake, alert, responding appropriately to questions HEENT: Pupils equal round and reactive to light, extraocular eye muscles intact , Neck soft supple, trachea midline, nomocephalic/atraumatic CV: +S1/S2, regular rate and rhythm, no murmurs auscultated Respiratory: CTAB, no wheezes, rales, rhonchi GI: +bowel sounds x4, soft, compressible, nontender to palpation EXT: no clubbing, cyanosis, edema Neuro: Cranial nerves II-XII grossly intact Psych: mood and affect were appropriate Test 02/19/17 14:06 02/19/17 14:07 02/21/17 06:25 02/22/17 06:15 Hemoglobin A1c 5.5% (4.8-5.6) Lipase 30U/L (13-60) Alcohols < 10mg/dL (0-10) Hold Abraham Top Tube Received (Received) Neutrophils (%) (Auto) 57.7% (40-74) Lymphocytes (%) (Auto) 31.7% (14-46) Monocytes (%) (Auto) 7.5% (4-12) Eosinophils (%) (Auto) 1.6% (0-5) Basophils (%) (Auto) 1.2% (0-3) Phosphorus Level 2.9mg/dL (2.5-4.9) Magnesium Level 2.0mg/dL (1.6-2.6) Total Bilirubin 1.0mg/dL (0.0-1.2) Aspartate Amino Transf (AST/SGOT) 115U/L (0-50) Alanine Aminotransferase (ALT/SGPT) 159U/L (0-44) Alkaline Phosphatase 51U/L (25-150) Total Protein 6.8g/dL (6.4-8.4) Albumin 4.1g/dL (3.4-5.0) White Blood Count 4.0th/mm3 (3.8-10.1) Red Blood Count 4.78mil/mm3 (4.40-5.80) Hemoglobin 14.5g/dL (13.8-17.2) Hematocrit 41.9% (41.0-50.0) Mean Corpuscular Volume 87.7fL (81-100) Mean Corpuscular Hemoglobin 30.3pg (27.0-35.0) Mean Corpuscular Hemoglobin Concent 34.6% (32.0-37.0) Red Cell Distribution Width 14.9% (12.3-15.4) Platelet Count 131bil/L (150-400) Test 02/23/17 06:25 Sodium Level 143mEq/L (134-144) Potassium Level 3.6mEq/L (3.5-5.2) Chloride Level 104mEq/L (97-108) Carbon Dioxide Level 26mmol/L (18-29) Blood Urea Nitrogen 7mg/dL (6-24) Creatinine 0.82mg/dL (0.76-1.27) Estimat Glomerular Filtration Rate 109mL/min (>59) Glucose Level 111mg/dL (60-99) Calcium Level 9.1mg/dL (8.5-10.1) Discharge Medications Discharge Medications ([Thiamine]) 100 MG TABLET 100 MG PO DAILY Prescribed by: STEVEN GOVEA DO Amlodipine (Amlodipine) 5 Mg Tablet 5 MG PO DAILY Prescribed by: STEVEN GOVEA DO Citalopram (Citalopram) 20 Mg Tablet 20 MG PO DAILY (Reported) Lisinopril (Lisinopril) 20 Mg Tablet 40 MG PO DAILY Prescribed by: STEVEN GOVEA DO Vit#96/Ferrous Fum/FA ( Tablet) 1 Each Tablet 1 TABLET PO DAILY Prescribed by: STEVEN GOVEA DO Additional med instructions You are being asked to take a vitamin because it has a lot of the nutrients that are needed for people in alcohol withdrawal and chronic alcohol use. Please continue to take this medication daily as it contains the vitamins that you need. You have been diagnosed with high blood pressure and you have been started on 2 new medications amlodipine and lisinopril. Please take them daily. Followup Plan Disposition: Patient is being discharged home in stable condition Discharge Diet: No restrictions Discharge Activity: No restrictions Patient Instructions Please follow-up with the Services as they will hope you with chemical dependency programs in order to help you to maintain sobriety. Follow-up Provider: Jennifer Lang MD Follow-up with PCP in: 2 weeks (if an appointment has not been made please call to schedule an appointment) Time spent Greater than 35 minutes copies to: Jennifer Lang MD, Precious L DO Feb 23, 2017 11:09
--- NOTE | 2017-02-23 11:43 | NUR ---
DISCHARGE Pt dc'd home this morning at 1130, amb off unit accompanied by , Ronel. Pt in no pain, vitals stable and in no apparent distress. IV dc'd intact and all belongings returned. All instructions for diet, activity, medications, prescriptions, and follow up with [facility] reviewed with pt and , who report understanding.
--- NOTE | 2017-02-23 14:13 | NUR ---
Social Work: Discharge Note Data: EMR Reviewed. Patient is on day 4 of hospitalization for ETOH W/D. Patient has been deemed medically stable for discharge by MD. Prior to admission patient was living at home with spouse. Patient will discharge home with spouse. Spouse will provide transportation. After discharge, patient will need to follow up with [facility] for treatment services for CD. Assessment: Patient to benefit from CD services via [facility]. Plan: Patient to discharge home with spouse. Spouse will provide transportation. Per MD note, patient has been instructed to contact [facility] for CD services. Patient has no additional needs at this time. JACQUE Jorgensen
== END 2017-02-23 11:35 | disposition home health service (06) | DRG 897 ==
LOC: SED 12:28 → OBSVTOIN 15:02 → PCC 15:02 → MPC 02-21 03:02
PROVIDERS: ADMIT Internal Medicine; ATTEND Neuromusculoskeletal Medicine & OMM
DX: F10.239 Alcohol dependence with withdrawal, unspecified (principal); I16.1 Hypertensive emergency; E87.6 Hypokalemia; I10 Essential (primary) hypertension; R11.2 Nausea with vomiting, unspecified; R74.0 Nonspecific elevation of levels of transaminase and lactic acid dehydrogenase [LDH]